=== PATIENT | female | born 1975 | race Two or more races ===

== ENCOUNTER 2021-04-29 14:04 | Emergency (ER) | payer OTHER ==
[~2021-04-29] VITALS: Ht 157.5 cm; Wt 95.3 kg
[2021-04-29] MEDS ORDERED: NORFLEX100MG PO (17:10)
[2021-04-29] MEDS ORDERED: KETO10TA2 PO (17:10)
[2021-04-29] MEDS ORDERED: VISTARIL50 MG PO (17:24)
== END 2021-04-29 17:44 | disposition home or self-care (01) ==
LOC: ER 14:04
DX: S13.4XXA Sprain of ligaments of cervical spine, initial encounter (principal); S30.0XXA Contusion of lower back and pelvis, initial encounter; S40.012A Contusion of left shoulder, initial encounter; V89.2XXA Person injured in unspecified motor-vehicle accident, traffic, initial encounter; Y93.89 Activity, other specified; Y92.89 Other specified places as the place of occurrence of the external cause; Y99.8 Other external cause status

== ENCOUNTER → 2022-10-13 08:59 | Outpatient (CLI) | payer OTHER ==
[~2022-10-13 08:59] MED LIST: KETO10TA2 PO; NORFLEX100MG PO; VISTARIL50 MG PO
== END | disposition home or self-care (01) ==
LOC: LAB 08:59
PROVIDERS: ATTEND Obstetrics & Gynecology Gynecology
DX: R53.82 Chronic fatigue, unspecified (principal); E78.5 Hyperlipidemia, unspecified; E55.9 Vitamin D deficiency, unspecified; A64 Unspecified sexually transmitted disease; N91.5 Oligomenorrhea, unspecified; D50.8 Other iron deficiency anemias; E11.9 Type 2 diabetes mellitus without complications

== ENCOUNTER 2022-10-16 07:21 | Outpatient (CLI) | payer OTHER | END 2022-10-16 07:26 | disposition home or self-care (01) | LOC: MAMO-SONO 07:21 | PROVIDERS: ATTEND Obstetrics & Gynecology Gynecology | DX: Z12.31 Encounter for screening mammogram for malignant neoplasm of breast (principal); N64.9 Disorder of breast, unspecified; N64.4 Mastodynia; R10.2 Pelvic and perineal pain ==

== ENCOUNTER 2022-11-08 00:57 | Emergency (ER) | payer OTHER ==
[~2022-11-08] VITALS: Ht 162.6 cm; Wt 89.8 kg
== END 2022-11-08 06:12 | disposition home or self-care (01) ==
LOC: ER 00:57
DX: K30 Functional dyspepsia (principal); R11.10 Vomiting, unspecified

== ENCOUNTER 2022-12-05 07:53 | Outpatient (CLI) | payer OTHER | END 2022-12-05 07:58 | disposition home or self-care (01) | LOC: SONOGRAMA 07:53 | PROVIDERS: ATTEND Internal Medicine Gastroenterology | DX: R10.13 Epigastric pain (principal) ==

== ENCOUNTER 2022-12-05 09:35 | Outpatient (CLI) | payer OTHER | END 2022-12-05 09:40 | disposition home or self-care (01) | LOC: LAB 09:35 | PROVIDERS: ATTEND Internal Medicine Gastroenterology | DX: R10.13 Epigastric pain (principal); E03.9 Hypothyroidism, unspecified; R74.8 Abnormal levels of other serum enzymes; M06.9 Rheumatoid arthritis, unspecified ==

== ENCOUNTER 2022-12-08 09:34 | Outpatient (CLI) | payer OTHER | END 2022-12-08 09:36 | disposition home or self-care (01) | LOC: LAB 09:34 | PROVIDERS: ATTEND Internal Medicine Gastroenterology | DX: R10.13 Epigastric pain (principal); E03.9 Hypothyroidism, unspecified; K74.69 Other cirrhosis of liver; M06.9 Rheumatoid arthritis, unspecified ==